=== PATIENT | female | born 1965 | race Caucasian/White ===

== ENCOUNTER 2025-03-16 08:26 | Outpatient (REF) | payer OTHER, SELFPAY ==
--- OUTSIDE RECORDS SUMMARY | 2025-03-17 08:30 | XMS_ITS ---
Author Name [facility] Organization Unknown History of Medication Use Medication Directions Dispensed Refills Start Date End Date Stat us LORazepam (Ativan) 0.5 mg tablet Take 1 tablet (0.5 mg total) by mouth 1 (one) time for 1 dose. Take once 30 minutes before imaging Max Daily Amount: 0.5 mg 11/14/2024 active methocarbamoL (ROBAXIN) 500 mg tablet Take 1 tablet (500 mg total) by mouth 3 (three) times a day if needed for muscle spasms. 10/17/2024 active azithromycin (ZITHROMAX) 250 mg tablet Take 2 tablets (500 mg total) by mouth 1 (one) time each day for 1 day, THEN 1 tablet (250 mg total) 1 (one) time each day for 4 days. 06/23/2024 06/29/2024 active carvedilol (COREG) 12.5 MG tablet TAKE 1 TABLET BY MOUTH 2 TIMES DAILY (WITH MEALS) FOR 90 DAYS. 04/04/2024 active atorvastatin (LIPITOR) 20 mg tablet Take 1 tablet (20 mg total) by mouth at bedtime. 07/16/2023 10/17/2024 aborted cholecalciferol (VITAMIN D-3) 50 mcg (2,000 unit) tablet Take 1 tablet (2,000 Units total) by mouth 1 (one) time each day. active sucralfate (Carafate) 1 gram tablet Take 1 Tablet by mouth 4 times daily (before meals and nightly) for 30 days. active Allergies Allergen Reaction Severity Comment Documented Date Source Statu s OTHER To pollen,Seaso nal allergies 2018 [facility] active Problems Problem Status Onset Date Problem Type Date of Resolution Source Patellofemoral arthritis of right knee active 2018-06-06 ProblemAct [facility] Chronic pain of right knee active 2018-06-06 ProblemAct [facility] Severe obesity (BMI 35.0-39.9) with comorbidity ([facility] V[facility], [facility] [place] active 2018-06-06 ProblemAct [facility] Popliteal cyst, right active 2018-05-02 ProblemAct [facility] Osteoarthritis of one hip, right active 2018-03-04 ProblemAct [facility] Varicose veins of legs active 2017-12-28 ProblemAct [facility] Claustrophobia active EncounterDiagnosisAct [facility]_THSFRAN Mixed hyperlipidemia active EncounterDiagnosisA ct [facility] Fibroids active 2018-01-12 ProblemAct [facility] AN LEILA (obstructive sleep apnea) active 2024-05-16 ProblemAct [facility] DDD (degenerative disc disease), lumbar active 2013-02-10 ProblemAct [facility] Hypertension active 2013-02-10 ProblemAct [facility] SFRAN Hyperlipidemia active 2013-02-10 ProblemAct [facility]_ THS[facility] Screening for diabetes mellitus active EncounterDiagnosisAct C T_THSFRAN Adren[place] [place] active 2024-06-29 ProblemAct [facility] Allergic rhinitis active 2017-12-28 ProblemAct [facility] Cutaneous candidiasis active EncounterDiagnosisAct [facility]S CHAITANYA Acute bacterial sinusitis active EncounterDiagnosisAct [facility] Non-recurrent acute serous otitis media of left ear active EncounterDiagnosisAct [facility] Immunizations Vaccine Date Source Lot Number Status Flubit Limited SARS-CoV-2 COVID-19, mRNA, LNP-S, preservative free 04/06/2022 [facility]SFRAN completed Influenza Quadravalent, MDCK , 0.5ml, with preservative (Flucelvax) 6mo and older 03/24/2022 [facility]_THSFRAN [id number] completed Influenza trivalent, with pr eservative (Fluzone; Afluria) 6mo and older 03/22/2022 [facility]_THSFRAN completed Flubit Limited SARS-CoV-2 COVID-19, mRNA, LNP-S, preservative free 12/28/2021 [facility]_THSFRAN completed Influenza Quadravalent, MDCK , 0.5ml, with preservative (Flucelvax) 6mo and older 06/04/2021 CTRICHARD [id number] completed Pfizer SARS-CoV-2 COVID-19, mRNA, LNP-S, preservative free 05/20/2021 CTRICHARD completed Pfizer SARS-CoV-2 COVID-19, mRNA, LNP-S, preservative free 07/17/2020 CTRICHARD [id number] completed Pfizer SARS-CoV-2 COVID-19, mRNA, LNP-S, preservative free 07/03/2020 CTRICHARD completed Influenza trivalent, with pr eservative (Fluzone; Afluria) 6mo and older 04/14/2020 CT_JAY completed Influenza Quadravalent, MDCK , 0.5ml, preservative free (Flucelvax) 6mo and older 04/10/2019 CTRICHARD [id number] completed Influenza Quadravalent, MDCK , 0.5ml, preservative free (Flucelvax) 6mo and older 05/02/2018 CTRICHARD [id number] completed Td Tetanus diptheria (Tdvax) 7yo and older 05/02/2018 [facility]_T HSFRAN [id number] completed MMR, measles mumps and rubel la Live (Priorix; M-M-R II) 12mo and older 09/02/2001 CT_MONIFRRUDDY completed Td Tetanus diptheria (Tdvax) 7yo and older 09/02/2001 CT_T HSFRAN completed Td Tetanus diptheria (Tdvax) 7yo and older 10/14/2000 CT_T HSFRAN completed MMR, measles mumps and rubel la Live (Priorix; M-M-R II) 12mo and older 09/16/2000 CT_HemalFRAN completed Td Tetanus diptheria (Tdvax) 7yo and older 09/16/2000 CT_T HSFRAN completed Encounters Encounter Type Encounter Reason Primary Diagnosis Location Date Ambulatory Annual Exam Essential (prima ry) hypertension [facility] 11/14/2024 Ambulatory Follow-up Pain in right shoulder [facility] 10/17/2024 Amb[facility] Follow[facility]/23[facility] new patient Essential (prima ry) hypertension [facility] 05/16/2024 Ambulatory [facility] 03/31/2024 Care Team Organization Name Specialty Phone Email Start Date End [facility] 10/14/2024 [facility] 06/18/2024 09/06/2024 [facility] 06/14/2024 [facility] 05/19/2024 [facility] Primary Care 05/16/2024 [facility] Primary Care 05/16/2024 [facility] Rubi Duncan DO Primary Care 04/28/202201/19
--- OUTSIDE RECORDS SUMMARY | 2025-03-17 08:30 | XMS_ITS | Clinical Summary ---
Author Organization [facility] [address] [place] [address] [place] [phone] Phone Care Team Providers Care Architectural Draftsman Name Role Phone Darcy Ochoa Primary Care Provider [phone] Allergies Active Allergy Reactions Criticality Noted Date Comments Other 2018 Seasonal allergies To pollen Medications blood pressure test kit-large (COMFORT TOUCH BP MONITOR MISC) Blood Pressure Monitoring (Comfort Touch BP Cuff/Large) Misc 1 Units by Does not apply route daily. 3 Active fexofenadine HCl (FEXOFENADINE ORAL) Take 1 Capsule by mouth daily. Active hydrALAZINE (APRESOLINE) 25 mg tablet Take 1 Tablet by mouth 2 times daily. 3 Active sucralfate (Carafate) 1 gram tablet Take 1 Tablet by mouth 4 times daily (before meals and nightly) for 30 days. Active cholecalciferol (VITAMIN D-3) 50 mcg (2,000 unit) tablet Take 1 tablet (2,000 Units total) by mouth 1 (one) time each day. Active magnesium 250 mg tablet Take by mouth. Activ e atorvastatin (LIPITOR) 20 mg tablet Take 1 tablet (20 mg total) by mouth at bedtime. Active carvediloL (COREG) 12.5 mg tablet Take by mouth 2 (two) times a day with meals. Active LORazepam (Ativan) 0.5 mg tabletIndicatio ns:Claustrophob ia Take 1 tablet (0.5 mg total) by mouth 1 (one) time for 1 dose. Take once 30 minutes before imaging Max Daily Amount: 0.5 mg 1 tablet 5 Active Active Problems Problem Noted Date Diagnosed Date Cervical radiculopathy 01/03/2025 Assessment & Plan (01/03/2025 4:02 PM EDT): Ms. Campos describes 3 months of neck pain with radiation to the right trapezius, triceps down the ulnar forearm to the 4th and 5th digits of her right hand. She says the hand feels like she has had anesthesia. 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 She is not myelopathic. Her MRI of the cervical spine from [facility] dated November 17, 2024 showed mild to moderate degenerative changes most significant at C5-6 where there was moderate right sided foraminal stenosis. There did not appear to be any significant stenosis on the right side at C6-7 or C7-T1. We talked about getting an EMG and nerve conduction study and she told me it had already been ordered. She is waiting for the appointment. She will make sure the results are sent to us and I told her I would review them and call her back once they were available. Adrenal nodule ([facility] V24) 06/29/2024 LEILA (obstructive sleep apnea) 05/16/2024 Chronic pain of right knee 06/06/2018 Patellofemoral arthritis of right knee 8 Severe obesity (BMI 35.0-39. 9) with comorbidity ([facility] V24, [facility] V28) 06/06/2018 Popliteal cyst, right 05/02/2018 Osteoarthritis of one hip, right 03/04/2018 Overview (03/30/2024): Had xray at [facility] showing mild OA of right hip in 2011 Fibroids 01/12/2018 Allergic rhinitis 12/28/2017 Varicose veins of legs 12/28/2017 Overview (03/30/2024): S/p laser ablation of right great saphenous vein & endovenous chemical ablation of residual symptomatic varicosities DDD (degenerative disc disease), lumbar 02/11/20 13 Overview (03/30/2024): Cervical and lumbar, lumbar MRI 06/30/2019 Hyperlipidemia 02/10/2013 Overview (03/30/2024): Last Assessment & Plan: Last fasting lipid profile was 1 month ago. This revealed an LDL of 134. This is has increased since her last fasting lipid profile. Her primary care physician has put her on Lipitor 20 mg and will be seeing the patient for follow-up in September. Hypertension 02/10/2013 Overview (03/30/2024): Last Assessment & Plan: Her blood pressure is well-controlled during today's exam with a reading of 120/80. I have made no changes to her antihypertensive medications. She will continue on carvedilol and hydralazine encouraged to continue with diet lifestyle modification to help further assist in lowering blood pressure. She was encouraged to follow low-salt low-fat diet, make purposeful strides towards weight loss and engage in routine aerobic exercise as tolerated. Resolved Problems Problem Noted Date Diagnosed Date Resolved Date Atypical chest pain 09/01/2022 05/16/20 24 Overview (03/30/2024): Last Assessment & Plan: Patient does continue to endorse episodes of left-sided atypical chest pain as she had outlined in the past. Unfortunately this is now also accompanied by profound fatigue and shortness of breath as well as decreased activity tolerance. In light of her ongoing symptoms and cardiac risk factors of obesity, hypertension and hyperlipidemia I am ordering stress testing to further evaluate for ischemic process which could be contributing to her ongoing symptoms. I did inform the patient she needs to call 911 and go to the emergency room should she begin to experience chest pain or pressure lasting greater than 10 minutes that is not resolved with rest. COVID-19 10/09/2019 05/16/2024 Encounters Date Type Department Care Team Description 01/03/2025 2:30 PM EDT Consult Neurosurgery [facility] [address] [facility] [address] [place] [address] Drew Clemente PA Cervical radiculopathy 12/18/2024 2:00 PM EDT Office Visit Orthopedic Surgery [facility] [address] [facility] [address] [place] [address] Kyara Flower PA Cervical radiculopathy (Primary Dx); Acute pain of right shoulder from Last 3 Months Immunizations Name Administration Dates Next Due Influenza Quadravalent, MDCK , 0.5ml, preservative free (Flucelvax) 6mo and older 04/10/2019,05/02/2018 Influenza Quadravalent, MDCK , 0.5ml, with preservative (Flucelvax) 6mo and older 03/24/2022,06/04/2021 Influenza trivalent, with preservative (Fluzone; Afluria) 6mo and older 03/22/2022,04/14/2020 MMR, measles mumps and rubel la Live (Priorix; M-M-R II) 12mo and older 09/02/2001,09/16/2000 Pfizer SARS-CoV-2 COVID-19, mRNA, LNP-S, preservative free 04/06/2022,12/28/2021,05/20/2021,2020,07/03/2020 Td Tetanus diptheria (Tdvax) 7yo and older 05/02/2018,09/02/2001,10/14/2000,2000 Surgical History Surgery Date Site/Laterality Comments CHOLECYSTECTOMY 10/24/2010 PROCEDURE: DC LAPAROSCOPY SURG CHOLECYSTECTOMY UPPER GASTROINTESTINAL ENDOSCOPY 02/19/2016 PROCEDURE: UPPER GI ENDOSCOPY/EXAM; COMMENT: no H. Pylori; chronic gastritis COLONOSCOPY 05/28/2015 PROCEDURE: HISTORICAL COLONOSCOPY; COMMENT: redundant colon; repeat in 10 years SHOULDER SURGERY 03/08/2015 Left PROCEDURE: HISTORICAL SHOULDER SURGERY; COMMENT: DENISE, SHO HYSTERECTOMY 2012 PROCEDURE: HISTORICAL HYSTERECTOMY Medical History Medical History Date Comments Allergic rhinitis 12/28/2017 DX:Allergic rh initis Hyperlipidemia 02/10/2013 DX:Hyperlipidemi a Hypertension 02/10/2013 DX:Hypertension Varicose veins of legs 12/28/2017 DX:Varico se veins of legs; COMMENT: S/p laser ablation of right great saphenous vein & endovenous chemical ablation of residual symptomatic varicosities History of abnormal cervical Pap smear 8 DX:History of abnormal cervical Pap smear; COMMENT: 12/2012 Normal PAP; 02/2003 ASCSIL Fibroids 01/12/2018 DX:Fibroids DDD (degenerative disc disea se), lumbar 02/10/2013 DX:DDD (degenerative disc di sease), lumbar; COMMENT: Cervical and lumbar, lumbar MRI 06/30/2019 Chronic pain of right knee 06/06/2018 DX:Ch ronic pain of right knee History of Helicobacter pylo ri infection 01/12/2018 DX:History of Helicobacter p ylori infection; COMMENT: 2003 With duodenitis and treated Osteoarthritis of one hip, right 03/04/2018 DX:Osteoarthritis of one hip, right; COMMENT: Had xray at [facility] showing mild OA of right hip in 2011 Patellofemoral arthritis of right knee 8 DX:Patellofemoral arthritis of right knee Popliteal cyst, right 05/02/2018 DX:Poplite al cyst, right Severe obesity (BMI 35.0-39. 9) with comorbidity (CMS/HCC V24, CMS/HCC V28) 06/06/2018 DX:Severe obesi ty (BMI 35.0- 39.9) with comorbidity ([facility]) Covid-19 10/09/2019 DX:COVID-19 Family History Medical History Relation Name Comments No Known Problems Daughter Other: Other Father diabetes, massi ve [place] at 73 Other: Other Mother doent know hist ory--?CKD Other: Other Paternal Grandmother Stomach cancer- from stomach cancer about 10 yrs. ago No Known Problems Sister 1 No Known Problems Sister 2 No Known Problems Sister 3 No Known Problems Sister 4 No Known Problems Son Relation Name Status Comments Brother Alive Daughter Alive Father Maternal Grandfather Maternal Grandmother Mother Alive Paternal Grandfather Paternal Grandmother Sister 1 Alive Sister 2 Alive Sister 3 Alive Sister 4 Alive Son Alive Social History Tobacco Use Types Packs/Day Years Used Date Smoking Tobacco: Never Passive Smoke Exposure: Never Smokeless Tobacco: Never Tobacco Cessation:Counseling Given: Not Answered Alcohol Use Standard Drinks/Week Comments Never 0 (1 standard drink = 0.6 oz pur e alcohol) Housing Instability Answer Date Recorde d Are you worried that in the next 2 months you may not have stable housing? Patient declined 11/13/2024 Food Access & Nutrition Answer Date Rec orded Do you have access to a vari ety of food including fruits and vegetables? Patient declined 11/13/2024 Health Literacy Answer Date Recorded How often do you need to hav e someone help you when you read instructions, pamphlets, or other written material from your doctor or pharmacy? Patient declined 11/13/2024 Caregiver: How often do you need to have someone help you when you read instructions, pamphlets, or other written material from your doctor or pharmacy? Not on file 025 Financial Risk Answer Date Recorded How hard is it for you to pa y for the very basics like food, housing, medical care, and air conditioning / heating? Patient declined 11/13/2024 Transportation Answer Date Recorded Has the lack of transportati on kept you from meetings, work, or from getting things needed for daily living? Patient declined 11/13/2024 Has the lack of transportati on kept you from medical appointments or from getting medications? Patient declined 11/13/2024 Social Isolation Answer Date Recorded How often do you feel lonely or isolated from those around you? Patient declined 11/13/2024 Food Risk Answer Date Recorded Within the past 12 months we worried whether our food would run out before we got money to buy more. Patient declined 025 Within the past 12 months th e food we bought just didn't last and we didn't have money to get more. Patient declined 10/20 Education Answer Date Recorded Do you think completing more education or training, like finishing a GED, going to college, or learning a trade, would be helpful for you? Patient declined 11/13/2024 Employment and Income Answer Date Recor ded During the last four weeks, have you been actively looking for work? Patient declined 11/13/2024 Living Situation Answer Date Recorded What is your living situation? 0 11/13/2024 Comments No Sex and Gender Information Value Date Recorded Sex Assigned at Not on file Legal Sex Female 2:32 AM EST Gender Identity Not on file Sexual Orientation Not on file Obstetrics History Last Filed Vital Signs Vital Sign Reading Time Taken Comments Blood Pressure 132/72 11/23/2024 2:01 PM EDT Pulse 87 11/23/2024 2:01 PM EDT Temperature 36.1 C (97 F) 11/23/2024 2:01 PM EDT Respiratory Rate 16 11/23/2024 2:01 PM EDT Oxygen Saturation 97% 11/23/2024 2:01 PM EDT Inhaled Oxygen Concentration - - Weight 93 kg (205 lb) 01/03/2025 2:37 PM EDT Height 160 cm (5' 3 ) 01/03/2025 2:37 PM EDT Body Mass Index 36.31 01/03/2025 2:37 PM EDT Plan of Treatment Upcoming Encounters Date Type Department Care Team (Late st Contact Info) Description 04/23/2025 2:45 PM EST Appointment [facility] Scan [address] [place] [phone] 04/30/2025 8:20 AM EST Office Visit Endocrinology - [place] [address] [place] [address] Beba Hebert PA [address] [place] [address] 05/14/2025 2:30 PM EST Office Visit Internal Medicine - [facility] [address] [place] [phone] Darcy Ochoa PA [address] [place] [address] 05/25/2025 2:30 PM EST Office Visit Pulmonology - [place] [address] [facility] [address] [place] [phone] Ashleigh Laguerre MD [address] [facility] [address] [place] [address] Health Maintenance Due Date Last Done Comments Breast Cancer Screening 1966 Hepatitis B Vaccines (1 of 3 - 19+ 3-dose series) 1985 Pneumococcal Vaccine: 50+ Years (1 of 2 - PCV) 1985 Zoster Vaccines (1 of 2) 2016 Cervical Cancer Screening: Pap Smear 02/18/2020 02/17/2017 HIV Screening 05/24/2022 COVID-19 Vaccine ( season) 2025 04/06/2022, 12/28/2021, 05/20/2021, Additional history exists Influenza Vaccine (#1) 2025 2, 03/22/2022, 06/04/2021, Additional history exists Colorectal Cancer Screening: Colonoscopy 05/28/2025 05/28/2015 Social Influencers of Health Screening 11/13/2025 11/13/2024 Hypertension/CHF/CAD Annual BMP Blood Test 11/16/2025 11/16/2024, 04/21/2024, 01/05/2024, Additional history exists DTaP,Tdap,and Td Vaccines (5 - Td or Tdap) 05/02/2028 05/02/2018, 09/02/2001, 10/14/2000, Additional history exists Cholesterol Screening (Lipid Panel) 11/16/2029 11/16/2024, 04/21/2024, 07/07/2023 RSV Immunization Adult Patients (1 - 1-dose 75+ series) 2041 MMR Vaccines Aged Out 09/02/2001, 09/16/2000 No lo nger eligible based on patient's age to complete this topic Hepatitis C Screening Completed 11/06/2021 Depression Screening Completed 11/13/2024 HIB Vaccines Aged Out No longer eligi ble based on patient's age to complete this topic HPV Vaccines Aged Out No longer eligi ble based on patient's age to complete this topic Hepatitis A Vaccines Aged Out No long er eligible based on patient's age to complete this topic IPV Vaccines Aged Out No longer eligi ble based on patient's age to complete this topic Meningococcal ACWY Vaccine Aged Out N o longer eligible based on patient's age to complete this topic Meningococcal B Vaccine Aged Out No l onger eligible based on patient's age to complete this topic RSV Immunization Patients Under 20 months Aged Out No longer eligible based on patient's age to complete this topic Varicella Vaccines Aged Out No longer eligible based on patient's age to complete this topic Procedures Procedure Name Priority Date/Time Associated Diagnosis Comments COMPREHENSIVE METABOLIC PANEL Routine 11/16/2024 8:48 AM EDT Mixed hyperlipidemia LIPID PANEL WITH REFLEX TO DIRECT LDL Routine 11/16/2024 8:48 AM EDT Mixed hyperlipidemia HEPATITIS C SCREENING Routine 11/06/2021 PAP SMEAR Routine 02/17/2017 HM COLONOSCOPY Routine 05/28/2015 from Last 3 Months or Most Recently Relevant to Health Maintenance Results * (ABNORMAL) Lipid panel with reflex to direct LDL (11/16/2024 8:48 AM EDT) Cholesterol 153 0 - 200 mg/dL LAB CHEMISTRY METHOD 11/16/2024 12:25 PM EDT [facility] Triglycerides 153(H) 0 - 150 mg/dL LAB CHEMISTRY METHOD 11/16/2024 12:25 PM EDT [facility] HDL 42 >=40 mg/dL LAB CHEMISTRY METHOD 11/16/2024 12:25 PM EDT [facility] LDL Calculated 80 0 - 100 mg/dL LAB CHEMISTRY METHOD 11/16/2024 12:25 PM EDT [facility] VLDL Cholesterol Ángel 30.6 mg/dL LAB CHEMISTRY METHOD 11/16/2024 12:25 PM EDT [facility] Non HDL Chol. (LDL+VLDL) 111 <145 mg/dL LAB CHEMISTRY METHOD 11/16/2024 12:25 PM EDT [facility] Chol/HDL Ratio 3.6 0.0 - 4.4 LAB CHEMISTRY METHOD 11/16/2024 12:25 PM EDT [facility] Blood Venous blood specimen / Unknown Venipuncture / Unknown 11/16/2024 8:48 AM EDT 11/16/2024 8:48 AM EDT us Darcy FARAH LAB BLOOD ORDERABLES Carmen l Result [facility] [address] [place] [address], [place] [phone] * (ABNORMAL) Comprehensive metabolic panel (11/16/2024 8:48 AM EDT) Sodium 142 133 - 145 mmol/L LAB CHEMISTRY METHOD 11/16/2024 12:[address] [facility] Potassium 4.0 3.5 - 5.5 mmol/L LAB CHEMISTRY METHOD 11/16/2024 12:[address] [facility] Chloride 108 96 - 110 mmol/L LAB CHEMISTRY METHOD 11/16/2024 12:[address] [facility] CO2 27 21 - 32 mmol/L LAB CHEMISTRY METHOD 11/16/2024 12:[address] [facility] Anion Gap 7 3 - 11 LAB CHEMISTRY METHOD 11/16/2024 12:[address] [facility] Glucose 99 70 - 100 mg/dL LAB CHEMISTRY METHOD 11/16/2024 12:[address] [facility] BUN 20 5 - 25 mg/dL LAB CHEMISTRY METHOD 11/16/2024 12:[address] [facility] Creatinine 0.80 0.50 - 1.10 mg/dL LAB CHEMISTRY METHOD 11/16/2024 12:[address] [facility] eGFR 86 >=60 mL/min/1. 73m2 LAB CHEMISTRY METHOD 11/16/2024 12:[address] [facility] Comment:Calculation based on the Chronic Kidney Disease Epidemiology Collaboration (CKD-EPI) equation refit without adjustment for race. BUN/Creatinine Ratio 25.0 LAB CHEMISTRY METHOD 11/16/2024 12:[address] [facility] Calcium 8.8 8.5 - 10.5 mg/dL LAB CHEMISTRY METHOD 11/16/2024 12:[address] [facility] AST (SGOT) 20 10 - 42 unit/L LAB CHEMISTRY METHOD 11/16/2024 12:[address] [facility] ALT (SGPT) 32 10 - 60 unit/L LAB CHEMISTRY METHOD 11/16/2024 12:[address] [facility] Alkaline Phosphatase 76 42 - 121 unit/L LAB CHEMISTRY METHOD 11/16/2024 12:25 PM EDT [facility] Total Protein 6.8 6.0 - 8.0 g/dL LAB CHEMISTRY METHOD 11/16/2024 12:25 PM EDT [facility] Albumin 3.6 3.2 - 5.0 g/dL LAB CHEMISTRY METHOD 11/16/2024 12:25 PM EDT [facility] Total Bilirubin 1.6(H) 0.0 - 1.4 mg/dL LAB CHEMISTRY METHOD 11/16/2024 12:25 PM EDT [facility] Blood Venous blood specimen / Unknown Venipuncture / Unknown 11/16/2024 8:48 AM EDT 11/16/2024 8:48 AM EDT Darcy FARAH LAB BLOOD ORDERABLES Carmen l Result [facility] [address] [place] [address], * Hepatitis C Screening (11/06/2021) [facility] Hepatitis C Screening abstracted Historical Provider HEALTH MAINTENANCE Final Result * Pap Smear (02/17/2017) Pap smear no interpretation , abstracted Historical Provider HEALTH MAINTENANCE Final Result * Colonoscopy (05/28/2015) Pathologist [facility] Colonoscopy no interpretation , abstracted Anatomical Region Laterality Modality Other Historical Provider HEALTH MAINTENANCE Final Result from Last 3 Months or Most Recently Relevant to Health Maintenance Insurance [facility] [address] [place] [address] Care Teams Architectural Draftsman Relationship Specialty Start Date End Date Darcy Ochoa PA [address] [place] [address] PCP - General Family Medicine 07/12/24
--- OUTSIDE RECORDS SUMMARY | 2025-03-17 08:30 | XMS_ITS | Clinical Summary ---
Author Organization [facility] Address [address] [place] [address] Care Team Providers Care Customer Support Professional Name Role Phone Pcp, No Primary Care Provider Unavailabl e Allergies No known active allergies Medications atorvastatin (LIPITOR) 20 MG tablet Take 20 mg by mouth. 04/17/2024 Active carvedilol (COREG) 12.5 MG tablet TAKE 1 TABLET BY MOUTH 2 TIMES DAILY (WITH MEALS) FOR 90 DAYS. 04/04/2024 Active PANTOprazole (PROTONIX) 20 MG tablet Take 20 mg by mouth. 04/21/2024 Active Active Problems No known active problems Social History Tobacco Use Types Packs/Day Years Used Date Smoking Tobacco: Never Assessed Comments Unknown Sex and Gender Information Value Date Recorded Sex Assigned at Not on file Legal Sex Female 6:10 PM EST Gender Identity Not on file Sexual Orientation Not on file Last Filed Vital Signs Vital Sign Reading Time Taken Comments Blood Pressure 136/87 06/14/2024 1:01 PM EST Pulse 90 06/14/2024 1:01 PM EST Temperature 36.4 C (97.6 F) 06/14/2024 1:01 PM EST Respiratory Rate 17 06/14/2024 1:01 PM EST Oxygen Saturation 98% 06/14/2024 1:01 PM EST Inhaled Oxygen Concentration - - Weight - - Height - - Body Mass Index - - Plan of Treatment Health Maintenance Due Date Last Done Comments Hepatitis C Virus Screening 1966 HIV Screening 1979 DTaP/Tdap/Td Vaccines (1 - Tdap) 1985 Hepatitis B Vaccines (1 of 3 - 19+ 3-dose series) 02/19 Pap Smear (Ages 21-65) 1987 Mammogram 2006 Colonoscopy 2011 Pneumococcal Vaccines 50+ (1 of 1 - PCV) 2016 Zoster (Shingles) Vaccine (1 of 2) 2016 Influenza Vaccine 01/19/2025 COVID-19 Vaccine (2023- season) 2025 Insurance [facility] Care Teams Customer Support Professional Relationship Specialty Start Date End Date Pcp, No PCP - General General Medicine 06/14/24
--- OUTSIDE RECORDS SUMMARY | 2025-03-17 08:30 | XMS_ITS | Clinical Summary ---
Author Organization [facility] Address [address] [place] [address] Care Team Providers Care Superintendent System Operation Name Role Phone Sukumar Garcia MD Primary Care Provide r Allergies No known active allergies Medications Medication Sig Dispensed Refills Start Date End Date Status lisinopril (PRINIVIL,ZESTRIL) tablet 20 mg Take 20 mg by mouth daily. 0 Active hydroCHLOROthiazide (HYDRODIURIL) tablet 25 mg Take 25 mg by mouth daily. 0 Active Naproxen Sodium (Aleve) 220 MG CAPS Take by mouth. 0 A ctive ibuprofen 200 MG tablet Take 200 mg by mouth every 6 (six) hours as needed for pain. 0 Active acetaminophen (TYLENOL) 325 MG tablet Take 650 mg by mouth every 6 (six) hours as needed for pain. 0 Active Family History Medical History Relation Name Comments Diabetes Father Stroke Father Arthritis Mother Hypertension Mother Relation Name Status Comments Father Mother Alive Social History Tobacco Use Types Packs/Day Years Used Date Smoking Tobacco: Never Smokeless Tobacco: Never Alcohol Use Standard Drinks/Week Comments Never 0 (1 standard drink = 0.6 oz pur e alcohol) Sex and Gender Information Value Date Recorded Sex Assigned at Not on file Gender Identity Not on file Sexual Orientation Not on file Job Start Date Occupation Industry Not on file Not on file Not on file Last Filed Vital Signs Vital Sign Reading Time Taken Comments Blood Pressure 164/105 04/11/2021 8:56 AM EDT Pulse 73 04/11/2021 8:56 AM EDT Temperature 37.1 C (98.7 F) 04/11/2021 8:56 AM EDT Respiratory Rate 16 04/11/2021 8:56 AM EDT Oxygen Saturation 100% 04/11/2021 8:56 AM EDT Inhaled Oxygen Concentration - - Weight 96.6 kg (213 lb) 04/11/2021 8:56 AM EDT Height 170.2 cm (5' 7 ) 04/11/2021 8:56 AM EDT Body Mass Index 33.36 04/11/2021 8:56 AM EDT Plan of Treatment Health Maintenance Due Date Last Done Comments Hepatitis B Vaccines (1 of 3 - 3-dose series) 1966 Hepatitis C Screening 1966 Depression Screening 1978 BMI Counseling 1984 Preventative Health Evaluation 1984 DTap / Tdap / Td (1 - Tdap) 1985 Cervical Cancer Screening (Pap Smear) 1987 Colon Cancer Screening (Colonoscopy) 2011 Breast Cancer Screening (Mammogram) 2016 Shingrix-Zoster Vaccine (1 of 2) 2016 COVID-19 Vaccine ( season) 2025 04/06/2022, 12/28/2021, 05/20/2021, Additional history exists Influenza Vaccine (#1) 2025 2, 03/22/2022, 06/04/2021, Additional history exists Pneumococcal Vaccine Aged Out No long er eligible based on patient's age to complete this topic RSV Ped < 20 months Aged Out No longe r eligible based on patient's age to complete this topic Care Teams Superintendent System Operation Relationship Specialty Start Date End Date Sukumar Garcia MD [address] [place] [phone] PCP - General Internal Medicine 03/28/21
--- OUTSIDE RECORDS SUMMARY | 2025-03-17 08:30 | XMS_ITS | Patient Health Record ---
Author Organization [facility] Address [address] [place] [address] Support Name Relationship Address Phone FROY HARTLEY Guarantor Unknown [phone] Reason For Referral No Information Medications Medication SIG (Take, Route, Fr equency, Duration) Notes Start Date End Date Status Fluconazole 150MG 1 ORAL now; Duration: 1 Ww [facility] [place]- 06/11/20 11 Active Monistat 7 100MG 1 PV VAGINAL at bedt song; Duration: 7 Ww [facility] [place]- 06/11/2011 Active Aygestin 5 mg 1 ORAL daily; Duration: -3 W[facility] [place]- 1 Active Plan Of Treatment No Information
== END 2025-03-16 08:27 | disposition home or self-care (01) ==
LOC: HO.HOSX 08:26
PROVIDERS: Visit Provider Physician Assistant
DX: Z13.89 Encounter for screening for other disorder (principal)

== ENCOUNTER 2025-05-04 12:58 | Outpatient (REF) | payer OTHER, SELFPAY ==
--- NOTE | 2025-05-04 13:01 | EMG_ITS ---
Chief complaint: Right arm pain, with numbness on 3rd-5th digits. Denies symptoms on left side. Reason for referral: Evaluate for Carpal Tunnel Syndrome or ulnar neuropathy Referred by: Chuy FARAH Procedure done: Right upper extremity NCS/EMG Precautions and/or limitations: None The limb temperature was monitored continuously and remained between 32-36 degrees C during the performance of the NCS. Nerve Conduction Studies Anti Sensory Summary Table ?Stim Site NR Onset (ms) Norm Onset (ms) Peak (ms) Norm Peak (ms) O-P Amp (?V) Norm O-P Amp Site1 Site2 Delta-0 (ms) Dist (cm) Rob (m/s) Norm Rob (m/s) Right Median Anti Sensory (2nd Digit) Wrist ? 2.3 3.0 <3.6 25.1 >10 Wrist 2nd Digit 2.3 14.0 61 Right Ulnar Anti Sensory (5th Digit) Wrist ? 0.9 2.8 <3.7 27.0 >15.0 Wrist 5th Digit 0.9 14.0 156 Motor Summary Table ?Stim Site NR Onset (ms) Norm Onset (ms) O-P Amp (mV) Norm O-P Amp iAmp (mV) Amp (1st) (%) Site1 Site2 Delta-0 (ms) Dist (cm) Rob (m/s) Norm Rob (m/s) Right Median Motor (Abd Poll Brev) Wrist ? 3.1 <3.9 7.6 >4.5 8.9 100.0 Elbow Wrist 3.9 21.0 54 >45 Elbow ? 7.0 6.5 8.1 85.5 Right Ulnar Motor (Abd Dig Minimi) Wrist ? 2.6 <3.0 9.8 >5 11.4 100.0 B Elbow Wrist 3.4 20.0 59 >45 B Elbow ? 6.0 8.2 9.7 83.7 A Elbow B Elbow 1.3 10.0 77 >45 A Elbow ? 7.3 8.3 9.8 84.7 Comparison Summary Table ?Stim Site NR Peak (ms) Norm Peak (ms) P-T Amp (?V) Site1 Site2 Delta-P (ms) Norm Delta (ms) Right Median/Radial Dig I Comparison (Digit 1 - 10cm) Median ? 2.3 <2.9 25.4 Median Radial 0.0 Radial ? 2.3 <2.8 12.9 EMG ?Side Muscle Nerve Root Ins Act Fibs Psw Amp Dur Poly Recrt Int Pat Comment Right 1stDorInt Ulnar C8-T1 Nml Nml Nml Nml Nml 0 Nml Complete Right FlexCarRad Median C6-7 Nml Nml Nml Nml Nml 0 Nml Complete Right Biceps Musculocut C5-6 Nml Nml Nml Nml Nml 0 Nml Complete Right Triceps Radial C6-7-8 Nml Nml Nml Nml Nml 0 Nml Complete Right Deltoid Axillary C5-6 Nml Nml Nml Nml Nml 0 Nml Complete FINDINGS: All motor and sensory nerves tested showed normal latencies, amplitudes and conduction velocities. Concentric needle EMG was performed in selected muscles of the right upper extremity. Study did not reveal signs of electric abnormalities as shown in the table above. IMPRESSION: 1. This is a normal study. 2. There is no electrodiagnostic evidence for median neuropathy, ulnar neuropathy, brachial plexopathy, or cervical radiculopathy. Thank you for your kind referral. Dai Madden MD, CHANDLER Board Certified, [place] [employer] and Rehabilitation (ABPMR) Board Certified, [place] Board of Electrodiagnostic Medicine (ABEM) CODIN 23581 x1 extremity MTDD
== END 2025-05-04 12:59 | disposition home or self-care (01) ==
LOC: HO.NEURO 12:58
DX: R20.0 Anesthesia of skin (principal); R20.2 Paresthesia of skin; M79.601 Pain in right arm
CPT/HCPCS: 95886; 95909

== ENCOUNTER → 2025-05-04 13:01 | Outpatient (BNV) | payer OTHER, SELFPAY | PROVIDERS: Visit Provider Physical Medicine & Rehabilitation | DX: R20.0 Anesthesia of skin (principal) | CPT/HCPCS: 95886; 95909 ==

== ENCOUNTER 2025-05-15 09:02 | Outpatient (AMB) | payer OTHER, SELFPAY ==
--- NOTE | 2025-05-15 09:21 | MHC.OFFVIS ---
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 Patient reports her numbness and tingling has resolved however she is having right hand stiffness. Patient is unable to make a fist or bring her fingers down. 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 She also complains of pain on the volar aspect of her right middle finger MCP joint. She is taking Advil and Tylenol PRN with relief. She denies previous injuries or surgeries to the hands. IMPRESSION 05/04/25: 1. This is a normal study. 2. There is no electrodiagnostic evidence for median neuropathy, ulnar neuropathy, brachial plexopathy, or cervical radiculopathy. 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 Patient reports her numbness and tingling has resolved however she is having right hand stiffness. Patient is unable to make a fist or bring her fingers down. 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 She also complains of pain on the volar aspect of her right middle finger MCP joint. She is taking Advil and Tylenol PRN with relief. She denies previous injuries or surgeries to the hands. IMPRESSION 05/04/25: 1. This is a normal study. 2. There is no electrodiagnostic evidence for median neuropathy, ulnar neuropathy, brachial plexopathy, or cervical radiculopathy. [facility] Surgical History (Updated 05/15/25 @ 09:30 by KATE Noonan) History of shoulder surgery Social History (Updated 05/15/25 @ 09:29 by KATE Noonan) Alcohol intake: never Patient Tobacco Use Status: Never used Tobacco Current occupational status: employed Current occupation: Cook, rt handed Physical Exam Vital Signs: BMI result Body Mass Index 38.3 Extrem Other: Neuro: Normal sensation of the tips of all digits of the right hand in the office today. No thenar or intrinsic wasting. Good APB muscle firing and good finger cross. Vascular: Capillary refill brisk. ROM: Patient can make a fist and extend all their digits, with encouragement, significant stiffness of the index and middle fingers of the right hand Skin: No lacerations or abrasions noted. General: No ecchymosis. No erythema or evidence of infection. [] Assessment & Plan Assessment & Plan (1) Stiffness of right hand joint: Code(s): M25.641 - Stiffness of right hand, not elsewhere classified Category: Medical Plan 1. Stiffness of right index and middle fingers Patient is educated about this condition Patient is educated about the typical treatment course OT referral placed for range of motion and strengthening of the right hand Patient understands this and is amenable to this plan Follow-up as needed Orders: Orders OT Evaluation and Treatment Today M25.641 - Stiffness of right hand, not elsewhere classified Coding Level of Care Code New Pt Level 3 (56671) Diagnoses Stiffness of right hand joint M25.641
[2025-05-15 09:28] VITALS: BMI 38.3
== END 2025-05-15 10:00 | disposition home or self-care (01) ==
LOC: HO.HOS 09:03
DX: M25.641 Stiffness of right hand, not elsewhere classified (principal)
CPT/HCPCS: 99203